=== PATIENT | male | born 1985 | race American Indian/Alaskan Native ===

== ENCOUNTER 2016-12-30 15:01 | Emergency (ER) | payer BC ==
[2016-12-30] MEDS ORDERED: NACL 0.9% 1000 ML 1,000 ML IV ONE (15:34)
--- NOTE | 2016-12-30 15:35 | Emergency Department Report ---
ED General Adult HPI - General Chief complaint: Dizziness Stated complaint: DIZZY/LIGHTHEADED/BACK PAIN Time Seen by Provider: 12/30/16 15:28 Source: patient, RN notes reviewed, old records reviewed Mode of arrival: Ambulatory Limitations: No Limitations - History of Present Illness Initial comments: This is a 31-year-old male. He is previously unknown to me. The patient has a past medical history of paroxysmal atrial fibrillation. He reports that he is not currently on systemic anticoagulation. The patient presents the ER complaining of dizziness and lightheadedness and upper back pain. The symptoms started earlier on today. They were constant. They have no exacerbating or relieving factors. The patient specifically denies severe headache, neck pain, chest pain, abdominal pain, shortness of breath, weakness, numbness. He also denies cocaine use. In the emergency room, the patient was found to have a disparity in blood pressures in the right upper extremity, and was brought back emergently. He had an EKG that demonstrated nonspecific ST abnormalities, but did not have chest pain. The EKG was transferred to the vehicle painter, Dr. Cuba, who also agreed that the patient did not meet thrombolysis or STEMI criteria. Upon completion of my initial history and physical, I had a very high suspicion for aortic disease/dissection, and requested an emergent CT angiogram of the chest, abdomen, pelvis. The patient verbally consented to emergent acquisition of CT scan of the chest, abdomen, pelvis before laboratory studies were resulted. Risks, benefits, alternatives were discussed with the patient. In the [facility], the patient was quite anxious, and required medication to help him relax and obtain a CT scan. Prior to contrast injection, the patient became altered, obtunded, and was immediately placed on a nonrebreather/[id number] ventilation, and brought back to the emergency room. He was intubated by myself with direct laryngoscopy with 1 attempt and no obvious complications. Postintubation, the patient had cloudy edema extruded from the endotracheal tube. Patient had an emergent nonsterile left-sided femoral central line placed by myself because of hemodynamic instability using ultrasound guidance. Given very high suspicion for aortic disease/dissection, I contacted the [place] transfer center, and discussed the case with the extracorporeal membrane oxygenation bypass coordinator, Dr. Aguirre, and their cardiothoracic surgeon on -call, Dr. Cash, and they accepted the patient as an emergent transfer for ECMO consultation and emergent cardiothoracic consultation. Unfortunately, the patient coded multiple times thereafter, received standard ACLS interventions, but pulses could be obtained, and return of spontaneous circulation could not be obtained. Serial bedside ultrasounds during his resuscitation did not demonstrate ventricular activity. Family was brought outside the room, and they were informed of the patient's poor prognosis. Unfortunately, resuscitation efforts were terminated secondary to prolonged pulselessness, inability to obtain return of spontaneous circulation, even in spite of aggressive medical management and ACLS intervention. transfer cancelled -: Gradual Location: back Radiation: non-radiation Quality: aching Consistency: intermittent Improves with: none Worsens with: none Associated Symptoms: weakness. denies: chest pain - Related Data Previous Rx's Medication Instructions Recorded Last Taken Type Aspirin [Aspirin TAB] 325 mg PO QDAY #120 tablet 07/22/15 Unknown Rx Diltiazem [Cardizem] 30 mg PO Q6HR #120 tablet 07/22/15 Unknown Rx Allergies Allergy/AdvReac Type Severity Reaction Status Date / Time No Known Allergies Allergy Unverified 07/21/15 13:03 ED Review of Systems ROS: Stated complaint: DIZZY/LIGHTHEADED/BACK PAIN Other details as noted in HPI Constitutional: malaise Eyes: denies: eye pain ENT: denies: epistaxis Respiratory: denies: shortness of breath Cardiovascular: denies: chest pain Gastrointestinal: denies: abdominal pain Musculoskeletal: back pain Skin: denies: rash, lesions Neurological: weakness Psychiatric: anxiety ED Past Medical Hx - Past Medical History Previous Medical History?: Yes Hx Congestive Heart Failure: No Hx Diabetes: No Hx Asthma: No Hx COPD: No Additional medical history: A fib - Surgical History Past Surgical History?: No - Social History Smoking Status: Never Smoker Substance Use Type: Alcohol - Medications Home Medications: Home Medications Medication Instructions Recorded Confirmed Last Taken Type Aspirin [Aspirin TAB] 325 mg PO QDAY #120 tablet 07/22/15 Unknown Rx Diltiazem [Cardizem] 30 mg PO Q6HR #120 tablet 07/22/15 Unknown Rx ED Physical Exam - General Limitations: No Limitations General appearance: alert, in no apparent distress - Head Head exam: Present: atraumatic, normocephalic - Eye Eye exam: Present: normal appearance, EOMI. Absent: nystagmus - ENT ENT exam: Present: normal exam, normal orophraynx, mucous membranes moist, normal external ear exam - Neck Neck exam: Present: normal inspection, full ROM. Absent: tenderness, meningismus - Respiratory Respiratory exam: Present: normal lung sounds bilaterally. Absent: respiratory distress, wheezes, rales, rhonchi, stridor, chest wall tenderness, decreased breath sounds - Cardiovascular Cardiovascular Exam: Present: normal rhythm, tachycardia, normal heart sounds, other (no pulses are appreciated in the right upper extremity. Bounding pulses are appreciated in the bilateral lower extremities and left upper extremity). Absent: systolic murmur, diastolic murmur, rubs, gallop - GI/Abdominal GI/Abdominal exam: Present: soft, normal bowel sounds. Absent: distended, tenderness, guarding, rebound, rigid, pulsatile mass - Rectal Rectal exam: Present: normal inspection - exam: Present: normal inspection - Extremities Exam Extremities exam: Present: normal inspection, full ROM. Absent: tenderness - Back Exam Back exam: Present: normal inspection, full ROM. Absent: tenderness, CVA tenderness (R) - Neurological Exam Neurological exam: Present: alert, oriented X3, other (Extraocular movements intact. Tongue midline. No facial droop. Facial sensation intact to light touch in the V1, V2, V3 distribution bilaterally. 5 and 5 strength in 4 extremities.. Sensation is intact to light touch in 4 extremities.). Absent: motor sensory deficit - Psychiatric Psychiatric exam: Present: normal affect, normal mood - Skin Skin exam: Present: warm, dry, intact, normal color. Absent: rash ED Course Vital Signs 12/30/16 12/30/16 12/30/16 15:12 15:19 15:20 Temperature 97.5 F L Pulse Rate 104 H Respiratory 18 Rate Blood Pressure 74/41 Blood Pressure [Left] O2 Sat by Pulse 98 94 94 Oximetry 12/30/16 12/30/16 12/30/16 15:26 15:30 15:36 Temperature Pulse Rate 115 H 116 H Respiratory 23 24 Rate Blood Pressure 124/44 124/44 Blood Pressure 124/44 [Left] O2 Sat by Pulse 92 92 Oximetry 12/30/16 12/30/16 12/30/16 15:44 15:50 15:56 Temperature Pulse Rate 43 L 44 L Respiratory 18 14 9 L Rate Blood Pressure 124/44 46/29 Blood Pressure [Left] O2 Sat by Pulse 93 Oximetry 12/30/16 12/30/16 12/30/16 16:00 16:05 16:10 Temperature Pulse Rate 108 H 129 H 121 H Respiratory 25 H 24 20 Rate Blood Pressure 106/43 114/44 101/40 Blood Pressure [Left] O2 Sat by Pulse 67 L 94 88 Oximetry 12/30/16 12/30/16 12/30/16 16:15 16:20 16:25 Temperature Pulse Rate 34 L 79 65 Respiratory 11 L 76 H 39 H Rate Blood Pressure 110/90 242/81 59/27 Blood Pressure [Left] O2 Sat by Pulse 65 L Oximetry 12/30/16 12/30/16 12/30/16 16:30 16:36 16:40 Temperature Pulse Rate 32 L 104 H 172 H Respiratory 77 H 89 H Rate Blood Pressure 74/26 242/81 242/81 Blood Pressure [Left] O2 Sat by Pulse 100 100 72 L Oximetry 12/30/16 12/30/16 16:46 16:50 Temperature Pulse Rate 27 L Respiratory 0 L 11 L Rate Blood Pressure 93/22 93/22 Blood Pressure [Left] O2 Sat by Pulse Oximetry - Reevaluation(s) Reevaluation #1: 12/30/16 17:21 patient is not a thrombolysis candidate given concern for aortic dissection. Not a candidate for the catheterization lab given concern for aortic dissection. - Central Line Placement Left Femoral Consent Obtained: emergent situation Time Out Performed: Yes Patient Placed on Monitor/Pulse Ox: Yes Prep: mask, gown, gloves Central Line Prep: Povidone-Iodine 1% Ultrasound Used for Placement: Yes Central Line Lumen Inserted: triple Bloods Obtained for Lab: Yes Central Line Position: good blood return Dressing Applied: Tegaderm Patient Tolerated Procedure: well Complications: none Additional Comments: Central line is placed emergently without sterile precautions secondary to hemodynamic instability, and medical emergency situation. - Intubation Time Out Performed: No (emergent) Sedative: Etomidate Paralytic: Rocuronium Laryngoscope: Lidia Size: 4 ET Tube Size: 8 Tube Secured Location: teeth Tube Placement Confirmation: visualized tube passing t Patient Tolerated Procedure: well Intubation Complications: none, difficult intubation ED Medical Decision Making - Lab Data Result diagrams: 12/30/16 15:26 12/30/16 15:26 Vital Signs 12/30/16 12/30/16 12/30/16 15:12 15:19 15:20 Temperature 97.5 F L Pulse Rate 104 H Respiratory 18 Rate Blood Pressure 74/41 Blood Pressure [Left] O2 Sat by Pulse 98 94 94 Oximetry 12/30/16 12/30/16 12/30/16 15:26 15:30 15:36 Temperature Pulse Rate 115 H 116 H Respiratory 23 24 Rate Blood Pressure 124/44 124/44 Blood Pressure 124/44 [Left] O2 Sat by Pulse 92 92 Oximetry 12/30/16 12/30/16 12/30/16 15:44 15:50 15:56 Temperature Pulse Rate 43 L 44 L Respiratory 18 14 9 L Rate Blood Pressure 124/44 46/29 Blood Pressure [Left] O2 Sat by Pulse 93 Oximetry 12/30/16 12/30/16 12/30/16 16:00 16:05 16:10 Temperature Pulse Rate 108 H 129 H 121 H Respiratory 25 H 24 20 Rate Blood Pressure 106/43 114/44 101/40 Blood Pressure [Left] O2 Sat by Pulse 67 L 94 88 Oximetry 12/30/16 12/30/16 12/30/16 16:15 16:20 16:25 Temperature Pulse Rate 34 L 79 65 Respiratory 11 L 76 H 39 H Rate Blood Pressure 110/90 242/81 59/27 Blood Pressure [Left] O2 Sat by Pulse 65 L Oximetry 12/30/16 12/30/16 12/30/16 16:30 16:36 16:40 Temperature Pulse Rate 32 L 104 H 172 H Respiratory 77 H 89 H Rate Blood Pressure 74/26 242/81 242/81 Blood Pressure [Left] O2 Sat by Pulse 100 100 72 L Oximetry 12/30/16 12/30/16 16:46 16:50 Temperature Pulse Rate 27 L Respiratory 0 L 11 L Rate Blood Pressure 93/22 93/22 Blood Pressure [Left] O2 Sat by Pulse Oximetry Labs 12/30/16 12/30/16 12/30/16 15:26 15:26 15:40 WBC 7.7 RBC 3.71 Hgb 12.2 Hct 36.0 MCV 97 H MCH 33 H MCHC 34 RDW 12.2 L Plt Count 218 Lymph % (Auto) 22.6 Kimble % (Auto) 9.6 H Eos % (Auto) 1.5 Baso % (Auto) 0.6 Lymph # 1.7 Kimble # 0.7 Eos # 0.1 Baso # 0.0 Seg Neutrophils % 65.7 Seg Neutrophils # 5.0 PT 13.9 INR 1.08 APTT 30.1 Sodium 138 Potassium 3.6 Chloride 99.9 Carbon Dioxide 20 L Anion Gap 22 BUN 16 Creatinine 0.8 Estimated GFR > 60 BUN/Creatinine Ratio 20.00 Glucose 99 Calcium 8.4 Troponin T 0.037 H Triglycerides 101 Cholesterol 110 LDL Cholesterol Direct 32 L HDL Cholesterol 58 Cholesterol/HDL Ratio 1.89 - EKG Data -: EKG Interpreted by Me - Radiology Data Radiology results: image reviewed interpreted by me: X-ray the chest Shows appropriate positioning of endotracheal tube, as well as pulmonary edema Critical Care Time: Yes Critical care time in (mins) excluding proc time.: 45 Critical care attestation.: If time is entered above; I have spent that time in minutes in the direct care of this critically ill patient, excluding procedure time. ED Disposition Clinical Impression: Cardiac arrest Disposition: DC-20 Is pt being admited?: No Does the pt Need Aspirin: No Condition: Undetermined Referrals: PRIMARY CARE, [Primary Care Provider] - 3-5 Days
[2016-12-30] MEDS ORDERED: NACL ONE (15:38)
[2016-12-30 15:46] LABS: Basophils % (Auto) 0.6 % (0.0-1.8); Eosinophils % (Auto) 1.5 % (0.0-4.3); Hemoglobin 12.2 gm/dl (11.8-15.2); Mean Corpuscular HGB Conc 34 % (32-34); Mean Corpuscular Hemoglobin 33 pg (28-32); Mean Corpuscular Volume 97 fl (84-94); Platelet Count 218 K/mm3 (140-440); Red Blood Count 3.71 M/mm3 (3.65-5.03); Red Cell Distribution Width 12.2 % (13.2-15.2); White Blood Count 7.7 K/mm3 (4.5-11.0)
[2016-12-30] MEDS ORDERED: VALIUM ONE (15:49)
[2016-12-30] MEDS ORDERED: ZOFRAN ONE (15:49)
[2016-12-30] MEDS ORDERED: VALIUM IV ONE (15:53)
[2016-12-30] MEDS ORDERED: ZOFRAN IV ONE (15:53)
[2016-12-30] MEDS ORDERED: ADRENALIN ONE (15:58)
[2016-12-30] MEDS ORDERED: AMIDATE IV ONE (15:58)
[2016-12-30] MEDS ORDERED: ZEMURON IV ONE (15:58)
[2016-12-30 15:59] LABS: Anion Gap 22 mmol/L; Blood Urea Nitrogen 16 mg/dL (9-20); Calcium 8.4 mg/dL (8.4-10.2); Carbon Dioxide 20 mmol/L (22-30); Chloride 99.9 mmol/L (98-107); Glucose 99 mg/dL (75-100); Potassium 3.6 mmol/L (3.6-5.0); Sodium 138 mmol/L (137-145)
[2016-12-30] MEDS ORDERED: LEVOPHED DRIP 4 MG/NS 250 ML 4 MG/250 ML BAG IV ONE (16:05)
[2016-12-30 16:08] LABS: INR 1.08 (0.87-1.13)
[2016-12-30 16:09] LABS: Partial Thromboplastin Time 30.1 Sec. (24.2-36.6)
[2016-12-30 16:14] LABS: Cholesterol 110 mg/dL (50-199); HDL Cholesterol 58 mg/dL (40-59); LDL Cholesterol,Direct 32 mg/dL (50-130); Triglycerides 101 mg/dL (2-149)
[2016-12-30] MEDS ORDERED: SUBLIMAZE ONE (16:33)
--- NOTE | 2016-12-30 16:41 | XRay Report ---
PORTABLE CHEST INDICATION: Cardiac arrest. COMPARISON: 07/21/2015 FINDINGS: Portable, frontal chest radiograph demonstrates endotracheal tube tip approximately 3.5 cm above the zev. Normal cardiomediastinal silhouette. Increased bronchovascular and interstitial prominence now seen, greatest toward the bases. No large pleural effusions however. Mild gaseous gastric distention. EKG leads. Intact bones. CONCLUSION: Interval uncomplicated intubation as also presumably congestive increased bronchovascular prominence. Please correlate. Thank you for the opportunity to participate in this patient's care.
[2016-12-30] MEDS ORDERED: NEO-SYNEPHRINE 100 MG in NACL 0.9% 90 ML IV SCH ×2 (17:00→20:00)
[2016-12-30 17:18] VITALS: BP 93/22
[2016-12-30] MEDS ORDERED: SUBLIMAZE IV ONE (19:54)
[2016-12-30] MEDS ORDERED: Vasostrict 20 UNIT in NACL 0.9% 100 ML IV SCH (20:00)
[2016-12-30] MEDS ORDERED: LEVOPHED DRIP 4 MG/NS 250 ML 4 MG/250 ML BAG IV SCH (20:00)
== END 2016-12-30 19:45 ==
LOC: ED 15:01
DX: I46.9 Cardiac arrest, cause unspecified (principal); Z79.82 Long term (current) use of aspirin
CPT/HCPCS: 31500; 36415; 36556; 71010; 80048; 80061; 84484; 85025; 85610; 85730; 92950; 93005; 93010; 96361; 96374; 96375; 99291; J0171; J2405; J3010; J3360; J7030; J2370